=== PATIENT | female | born 1995 | race Caucasian/White ===

== ENCOUNTER 2017-04-21 16:12 | Emergency (ER) | payer BC, OTHER ==
--- NOTE | 2017-04-21 16:48 | ER Document Report ---
ED Medical Screen (RME) - General Chief Complaint: Vaginal Bleeding Stated Complaint: VAGINAL BLEEDING Time Seen by Provider: 04/21/17 16:20 Mode of Arrival: Ambulatory Information source: Patient TRAVEL OUTSIDE OF THE [place] IN LAST 30 DAYS: No - HPI Patient complains to provider of: , Vaginal bleeding Onset: This morning Notes: 04/21/17 16:48 Is a 21-year-old female who is with no prior complications, who reports being approximately 5 weeks , presenting to the emergency room complaining of pelvic cramping with vaginal bleeding started earlier today - Related Data Allergies/Adverse Reactions: No Known Allergies Allergy (Verified 04/21/17 16:16) Past Medical History - General Last Menstrual Period: 01/2017 Renal/ Medical History: Denies: Hx Peritoneal Dialysis Physical Exam - Vital signs Vitals: Temp Pulse Resp BP Pulse Ox 98 F 114 H 20 132/84 H 98 04/21/17 16:17 04/21/17 16:17 04/21/17 16:17 04/21/17 16:17 04/21/17 16:17 Course - Vital Signs Vital signs: Temp Pulse Resp BP Pulse Ox 98 F 114 H 20 132/84 H 98 04/21/17 16:17 04/21/17 16:17 04/21/17 16:17 04/21/17 16:17 04/21/17 16:17
[2017-04-21 17:15] LABS: ABSOLUTE BASOPHILS # (AUTO) 0.1 10^3/uL (0.0-0.2); ABSOLUTE LYMPHOCYTES (AUTO) 1.8 10^3/uL (0.5-4.7); ABSOLUTE MONOCYTES (AUTO) 0.8 10^3/uL (0.1-1.4); ABSOLUTE NEUT (AUTO) 11.1 10^3/uL (1.7-8.2); BASOPHILS % (AUTO) 0.4 % (0-2); EOSINOPHILS % (AUTO) 0.4 % (0-6); HEMATOCRIT 42.3 % (36.0-47.0); HEMOGLOBIN 14.2 g/dL (12.0-15.5); HGB HCT DIFFERENCE 0.3; MEAN CORPUSCULAR HGB CONC 33.6 g/dL (32.0-36.0); MEAN CORPUSCULAR VOLUME 86 fl (80-97); MONOCYTES % (AUTO) 5.7 % (3-13); RED BLOOD COUNT 4.91 10^6/uL (3.72-5.28); RED CELL DISTRIBUTION WIDTH 12.5 % (11.5-14.0); SEGMENTED NEUTROPHILS % (AUTO) 80.5 % (42-78); WHITE BLOOD COUNT 13.8 10^3/uL (4.0-10.5)
[2017-04-21 17:24] LABS: APPEARANCE,URINE CLOUDY; BILIRUBIN,URINE NEGATIVE (NEGATIVE); GLUCOSE, URINE NEGATIVE (NEGATIVE); KETONES,URINE NEGATIVE (NEGATIVE); LEUKOCYTE ESTERASE,URINE NEGATIVE (NEGATIVE); NITRITE,URINE NEGATIVE (NEGATIVE); PROTEIN,URINE >=500 mg/dL (NEGATIVE); UROBILINOGEN,URINE NEGATIVE mg/dL (<2.0)
[2017-04-21 17:32] LABS: ALANINE AMINOTRANSFERASE 26 U/L (9-52); ALBUMIN 4.5 g/dL (3.5-5.0); ALKALINE PHOSPHATASE 75 U/L (38-126); ANION GAP 11 (5-19); ASPARTATE AMINO TRANSFERASE 24 U/L (14-36); BILIRUBIN,DIRECT 0.3 mg/dL (0.0-0.4); BILIRUBIN,TOTAL 0.5 mg/dL (0.2-1.3); BLOOD UREA NITROGEN 7 mg/dL (7-20); CALCIUM 9.7 mg/dL (8.4-10.2); CARBON DIOXIDE 24 mmol/L (22-30); CHLORIDE 104 mmol/L (98-107); GLUCOSE 89 mg/dL (75-110); POTASSIUM 4.3 mmol/L (3.6-5.0); SODIUM 138.5 mmol/L (137-145); TOTAL PROTEIN 7.5 g/dL (6.3-8.2)
--- NOTE | 2017-04-21 17:47 | RADIOLOGY REPORT (SQ) ---
EXAM DESCRIPTION: U/S OB TRANSVAG W/DOPPLER COMPLETED DATE/TIME: 04/21/2017 5:37 pm REASON FOR STUDY: preg, vag bldg COMPARISON: None. TECHNIQUE: Transvaginal static and realtime grayscale images acquired of the pelvis. Additional carine cted spectral and color Doppler images recorded. All images stored on PACs. bHCG: Not available LIMITATIONS: None. FINDINGS: FETUS: Living intrauterine . EGA: 10 weeks 3 days LAZ: 11/14/2017 FHR: 165 beats per minute. SUBCHORIONIC BLEED: Yes SIZE OF BLEED: 2.7 x 3.1 x 1.2 cm UTERUS: No masses. No anomalies. CERVICAL LENGTH: 3.6 cm Closed. RIGHT ADNEXA: Right ovary was not visualized. No adnexal free fluid. No adnexal masses. LEFT ADNEXA: Left ovary was not visualized. No adnexal free fluid. No adnexal masses. FREE FLUID: None. OTHER: No other significant finding. IMPRESSION: LIVING INTRAUTERINE . EGA 10 weeks 3 days Trimester of : First - 0 to 13 weeks. TECHNICAL DOCUMENTATION: JOB ID: [id number] [employer]- All Rights Reserved
--- NOTE | 2017-04-21 18:40 | ER Document Report ---
ED GI/ - General Mode of Arrival: Ambulatory Information source: Patient TRAVEL OUTSIDE OF THE [place] IN LAST 30 DAYS: No - HPI Recently seen / treated by doctor: Yes <BOOKER KEENE - Last Filed: 04/21/17 18:34> <ISAURO DWYER - Last Filed: 04/21/17 23:57> - General Chief Complaint: Vaginal Bleeding Stated Complaint: VAGINAL BLEEDING Time Seen by Provider: 04/21/17 16:20 Notes: Patient is a 21-year-old female that presents to the emergency department today with complaints of vaginal bleeding. Patient states "at some point in February she was seen at [facility] and was 5 weeks 5 days". Patient is . Patient states she has soaked through 3 pads since 1500 today which is heavier than her normal period. Patient states she has slight menstrual cramps. Patient states she was given "UTI pills" in February but she is unsure what kind. Patient denies any fevers. (BOOKER KEENE) - Related Data Allergies/Adverse Reactions: No Known Allergies Allergy (Verified 04/21/17 16:16) Past Medical History - General Information source: Patient Last Menstrual Period: 01/2017 - Social History Smoking Status: Never Smoker Cigarette use (# per day): No Chew tobacco use (# tins/day): No Frequency of alcohol use: None Drug Abuse: Marijuana Lives with: Family Family History: Reviewed & Not Pertinent Patient has suicidal ideation: No Patient has homicidal ideation: No - Medical History Medical History: Negative Surgical Hx: Negative <BOOKER KEENE - Last Filed: 04/21/17 18:34> Review of Systems - Review of Systems Constitutional: denies: Fever EENT: No symptoms reported Cardiovascular: No symptoms reported Respiratory: No symptoms reported Gastrointestinal: No symptoms reported Genitourinary: See HPI, Dysuria Female Genitourinary: See HPI, , Vaginal bleeding Musculoskeletal: No symptoms reported Skin: No symptoms reported Hematologic/Lymphatic: No symptoms reported Neurological/Psychological: No symptoms reported -: Yes All other systems reviewed and negative <BOOKER KEENE - Last Filed: 04/21/17 18:34> Physical Exam <BOOKER KEENE - Last Filed: 04/21/17 18:34> - Genitourinary External exam: Normal Speculum exam: Cervix closed Vaginal bleeding: Moderate Bimanuel exam: Normal <ISAURO DWYER - Last Filed: 04/21/17 23:57> - Vital signs Vitals: Temp Pulse Resp BP Pulse Ox 98 F 114 H 20 132/84 H 98 04/21/17 16:17 04/21/17 16:17 04/21/17 16:17 04/21/17 16:17 04/21/17 16:17 - Notes Notes: Physical Exam: General: Alert, appears well. HEENT: Normocephalic. Atraumatic. PERRLA. Extraocular movements intact. Oropharynx clear. Neck: Supple. Respiratory: No respiratory distress. Abdominal: Normal Inspection. No distension. Extremities: Moves all four extremities. Neurological: Cranial nerves II-XII grossly intact bilaterally. Normal cognition. AAOx4. Normal speech. Psychological: Normal affect. Normal Mood. Skin: Warm. Dry. Normal color. (BOOKER KEENE) Course - Laboratory Result Diagrams: 04/21/17 16:59 04/21/17 16:59 <BOOKER KEENE - Last Filed: 04/21/17 18:34> - Laboratory Result Diagrams: 04/21/17 16:59 04/21/17 16:59 <ISAURO DWYER - Last Filed: 04/21/17 23:57> - Re-evaluation Re-evalutation: 04/21/17 19:57 moderate vaginal bleeding on exam, dark red. REview of her old chart confirms O positive status. No rhogam indicated. (ISAURO DWYER) - Vital Signs Vital signs: Temp Pulse Resp BP Pulse Ox 98.3 F 78 20 116/72 100 04/21/17 22:58 04/21/17 22:58 04/21/17 22:58 04/21/17 22:58 04/21/17 22:58 - Laboratory Laboratory results interpreted by nc: 04/21/17 04/21/17 04/21/17 16:59 16:59 16:59 WBC 13.8 H Seg Neutrophils % 80.5 H Absolute Neutrophils 11.1 H Beta HCG, Quant 51364.00 H Urine Protein >=500 H Urine Ketones Urine Blood LARGE H 04/21/17 20:00 WBC Seg Neutrophils % Absolute Neutrophils Beta HCG, Quant Urine Protein Urine Ketones 20 H Urine Blood Discharge <BOOKER KEENE - Last Filed: 04/21/17 18:34> <ISAURO DWYER - Last Filed: 04/21/17 23:57> - Discharge Clinical Impression: Threatened Qualifiers: Weeks of gestation: 10 weeks Qualified Code(s): Z3A.10 - 10 weeks gestation of Condition: Stable Disposition: HOME, SELF-CARE Instructions: Threatened Miscarriage ([facility]), Threatened Abortions ( Patients), Bleeding During Early ([facility]) Scribe Attestation: 04/21/17 21:23 I personally performed the services described in the documentation, reviewed and edited the documentation which was dictated to the scribe in my presence, and it accurately records my words and actions. (ISAURO DWYER) Scribe Documentation - Scribe Written by Scribe:: Lai Desai, 04/21/17 [id number] acting as scribe for :: Shara <BOOKER KEENE - Last Filed: 04/21/17 18:34>
[2017-04-21 21:21] LABS: APPEARANCE,URINE CLEAR; BILIRUBIN,URINE NEGATIVE (NEGATIVE); GLUCOSE, URINE NEGATIVE (NEGATIVE); KETONES,URINE 20 mg/dL (NEGATIVE); LEUKOCYTE ESTERASE,URINE NEGATIVE (NEGATIVE); NITRITE,URINE NEGATIVE (NEGATIVE); PROTEIN,URINE NEGATIVE (NEGATIVE); URINE SPECIFIC GRAVITY 1.025; UROBILINOGEN,URINE NEGATIVE mg/dL (<2.0)
[2017-04-21 21:51] LABS: CHLAM PCR NOT DETECTED (NOT DETECT)
[2017-04-21 22:59] VITALS: BP 116/72
== END 2017-04-21 21:32 | disposition home or self-care (01) ==
LOC: ER 16:12
DX: O20.0 Threatened abortion (principal); Z3A.10 10 weeks gestation of pregnancy
CPT/HCPCS: 36415; 51701; 76817; 80053; 81001; 84702; 85025; 87086; 87210; 87491; 87591; 93976; 99284

== ENCOUNTER 2017-05-03 14:25 | Emergency (ER) | payer BC, OTHER ==
--- NOTE | 2017-05-03 16:20 | ER Document Report ---
ED Medical Screen (RME) - General Chief Complaint: Abdominal Pain Stated Complaint: ABDOMINAL CRAMPS Time Seen by Provider: 05/03/17 16:19 Mode of Arrival: Ambulatory Information source: Patient Notes: pt c/o lower abdominal cramps, vaginal bleeding. Reports she is ~11 weeks . . She is visiting from [place]. No care, although she has been taking vitamins. Seen here last week for same. Reports she has been spotting but when she sits to void she will experience a lopez of blood, filling the toilet bowl. She denies trauma. Reports her first was uneventful although she was sick for the first 3 months. TRAVEL OUTSIDE OF THE [place] IN LAST 30 DAYS: No - HPI Onset: Other - 2 weeks Onset/Duration: Persistent Quality of pain: Cramping Severity: Moderate Pain Level: 3 Associated Symptoms: Nausea Exacerbated by: Denies Relieved by: Denies Similar symptoms previously: Yes Recently seen / treated by doctor: Yes - Related Data Allergies/Adverse Reactions: No Known Allergies Allergy (Verified 05/03/17 15:16) Past Medical History - General Information source: Patient Last Menstrual Period: 02/12/17 - Social History Cigarette use (# per day): No Chew tobacco use (# tins/day): No Frequency of alcohol use: None Drug Abuse: None Lives with: Family Renal/ Medical History: Denies: Hx Peritoneal Dialysis Physical Exam - Vital signs Vitals: Temp Pulse Resp BP Pulse Ox 97.4 F 94 12 123/82 99 05/03/17 18:56 05/03/17 18:56 05/03/17 18:56 05/03/17 18:56 05/03/17 18:56 Course - Re-evaluation Re-evalutation: 05/03/17 19:23 OB ultrasound obtained, possible circumvallate the placenta noted. Consult with Dr. Elizabeth. He reports he wants to see the patient in the morning. Patient was updated on plan of care importance of pelvic rest. - Vital Signs Vital signs: Temp Pulse Resp BP Pulse Ox 98.6 F 88 15 115/66 100 05/03/17 20:05 05/03/17 20:05 05/03/17 20:05 05/03/17 20:05 05/03/17 20:05 - Laboratory Result Diagrams: 05/03/17 16:35 05/03/17 16:35 Laboratory results interpreted by me: 05/03/17 05/03/17 16:35 16:35 WBC 15.5 H Absolute Neutrophils 11.9 H Beta HCG, Quant 586133.00 H - Diagnostic Test Radiology reviewed: Image reviewed, Reports reviewed - Living IUP EGA 12 weeks , Possible circumvallate placenta - Consults dr elizabeth Time consulted: 19:34 Reason for consultation: 05/03/17 19:35 circumvallete placenta Consulted provider: follow-up in office Doctor's Discharge - Discharge Clinical Impression: Vaginal bleeding, , possible circumvallate placenta Condition: Stable Disposition: HOME, SELF-CARE Instructions: Vaginal Bleeding ([facility]), ([facility]) Additional Instructions: *You have been evaluated for vaginal bleeding, , circumvallate placenta *Pelvic rest, do not put anything in your vagina. *Follow up with Dr Elizabeth tomorrow at 0800, call the office for an appointment in the morning *Inform the office that this a ED follow up visit for a possible circumvallate placenta *Return to ED for worsening condition, changes, needs, increased bleeding, pain , concerns Referrals: NIKKI MARTIN DO [LEONEL MAHMOOD] - Follow up tomorrow (call the office at 0800 for an appointment tomorrow morning)
[2017-05-03 16:53] LABS: ABSOLUTE BASOPHILS # (AUTO) 0.1 10^3/uL (0.0-0.2); ABSOLUTE EOSINOPHILS # (AUTO) 0.1 10^3/uL (0.0-0.6); ABSOLUTE LYMPHOCYTES (AUTO) 2.6 10^3/uL (0.5-4.7); ABSOLUTE MONOCYTES (AUTO) 0.8 10^3/uL (0.1-1.4); ABSOLUTE NEUT (AUTO) 11.9 10^3/uL (1.7-8.2); BASOPHILS % (AUTO) 0.5 % (0-2); EOSINOPHILS % (AUTO) 0.7 % (0-6); HEMATOCRIT 41.1 % (36.0-47.0); HEMOGLOBIN 13.7 g/dL (12.0-15.5); LYMPHOCYTES % (AUTO) 16.6 % (13-45); MEAN CORPUSCULAR HEMOGLOBIN 28.6 pg (27.0-33.4); MEAN CORPUSCULAR HGB CONC 33.2 g/dL (32.0-36.0); MEAN CORPUSCULAR VOLUME 86 fl (80-97); MONOCYTES % (AUTO) 5.4 % (3-13); RED BLOOD COUNT 4.78 10^6/uL (3.72-5.28); RED CELL DISTRIBUTION WIDTH 12.6 % (11.5-14.0); SEGMENTED NEUTROPHILS % (AUTO) 76.8 % (42-78); WHITE BLOOD COUNT 15.5 10^3/uL (4.0-10.5)
[2017-05-03 17:14] LABS: ALANINE AMINOTRANSFERASE 23 U/L (9-52); ALBUMIN 4.3 g/dL (3.5-5.0); ALKALINE PHOSPHATASE 84 U/L (38-126); ANION GAP 11 (5-19); ASPARTATE AMINO TRANSFERASE 21 U/L (14-36); BILIRUBIN,DIRECT 0.2 mg/dL (0.0-0.4); BILIRUBIN,TOTAL 0.5 mg/dL (0.2-1.3); BLOOD UREA NITROGEN 9 mg/dL (7-20); CARBON DIOXIDE 24 mmol/L (22-30); CHLORIDE 102 mmol/L (98-107); CREATININE RESULT 0.59 mg/dL (0.52-1.25); GLUCOSE 82 mg/dL (75-110); POTASSIUM 4.2 mmol/L (3.6-5.0); SODIUM 137.1 mmol/L (137-145)
--- NOTE | 2017-05-03 18:26 | RADIOLOGY REPORT (SQ) ---
EXAM DESCRIPTION: U/S OB TRANSVAGINAL W/O DOP COMPLETED DATE/TIME: 05/03/2017 6:03 pm REASON FOR STUDY: preg bleedeing COMPARISON: None. TECHNIQUE: Transvaginal static and realtime grayscale images acquired of the pelvis. Additional carine cted spectral and color Doppler images recorded. All images stored on PACs. bHCG: Not applicable LIMITATIONS: None. FINDINGS: FETUS: Living intrauterine . EGA: 12 weeks 0 days LAZ: 11/15/2017 FHR: 162 beats per minute. SUBCHORIONIC BLEED: No SIZE OF BLEED: Not applicable. UTERUS: 92 x 98 x 92 mm. No masses. No anomalies. CERVICAL LENGTH: Not measured. Closed. RIGHT ADNEXA: Normal ovary 31 x 18 x 15 mm. No adnexal free fluid. No adnexal masses. LEFT ADNEXA: Not seen. No adnexal free fluid. No adnexal masses. FREE FLUID: None. OTHER: Possible circumvallate placenta. IMPRESSION: 1. LIVING INTRAUTERINE . EGA 12 weeks 0 days. 2. Possible circumvallate placenta. Trimester of : First - 0 to 13 weeks. TECHNICAL DOCUMENTATION: JOB ID: [id number] [employer]- All Rights Reserved
[2017-05-03 20:06] VITALS: BP 115/66
== END 2017-05-03 20:05 | disposition home or self-care (01) ==
LOC: ER 14:25
DX: O20.9 Hemorrhage in early pregnancy, unspecified (principal); R10.9 Unspecified abdominal pain; R11.0 Nausea; Z3A.12 12 weeks gestation of pregnancy
CPT/HCPCS: 36415; 76817; 80053; 84702; 85025; 86900; 86901; 99284